=== PATIENT | female | born 1985 | race Caucasian/White ===

== ENCOUNTER 2020-12-02 12:39 | Outpatient (RCR) | payer OTHER, SELFPAY ==
[2020-12-02 14:07] LABS: Hematocrit 30.1 % (37.0-47.0); Hemoglobin 9.8 g/dL (12.0-15.0); Mean Corpuscular HGB Conc 32.6 g/dl (32-36); Mean Corpuscular Hemoglobin 28.4 pg (26-34); Mean Corpuscular Volume 87.2 fl (80-100); Mean Platelet Volume 8.9 fl (7.4-10.4); Platelet Count Result 260 k/mm3 (150-375); Red Blood Count 3.45 M/mm3 (4.2-5.4); Red Cell Distribution Width 12.8 % (11.5-14.5); White Blood Count 10.4 K/mm3 (4.5-10.0)
[2020-12-02 14:18] LABS: Glucose 1 Hour PP 50gm Dose 150 mg/dL
[2020-12-02 15:00] LABS: HIV 1/2 Ab P24 Ag Result Negative (Negative)
[2020-12-04] MEDS: RHO(D) IMMUNE GLOBULIN 300 MCG/2 ML SYRINGE IM (13:17)
== END 2021-03-02 23:59 | disposition home or self-care (01) ==
LOC: ANHLAB 12:39
PROVIDERS: Visit Provider Obstetrics & Gynecology
DX: Z11.4 Encounter for screening for human immunodeficiency virus [HIV] (principal); Z29.13 Encounter for prophylactic Rho(D) immune globulin; O36.0120 Maternal care for anti-D [Rh] antibodies, second trimester, not applicable or unspecified; Z3A.00 Weeks of gestation of pregnancy not specified
CPT/HCPCS: 36415; 82947; 85027; 85461; 86703; 90384; 96372; G0432; J2790

== ENCOUNTER 2020-12-18 07:03 | Outpatient (CLI) | payer OTHER, SELFPAY ==
[2020-12-18 08:32] LABS: Glucose Fasting Gestational 91 mg/dL (>/=95)
[2020-12-18 10:28] LABS: Glucose 1 Hour Gest 134 mg/dL (>/=180)
[2020-12-18 11:28] LABS: Glucose 2 Hour Gest 147 mg/dL (>/= 155)
[2020-12-18 12:29] LABS: Glucose 3 Hour Gest 119 mg/dL (>/=140)
== END 2020-12-18 07:04 | disposition home or self-care (01) ==
LOC: ANHLAB 07:05
PROVIDERS: PCP Obstetrics & Gynecology; Visit Provider Obstetrics & Gynecology
DX: R73.09 Other abnormal glucose (principal)
CPT/HCPCS: 36415; 82951; 82952

== ENCOUNTER 2021-02-09 14:59 | Outpatient (CLI) | payer OTHER, SELFPAY ==
--- NOTE | ~2021-02-09 | US_ITS ---
EXAMINATION: US OB follow up DATE: 02/09/2021 15:33 INDICATION: growth restriction during third trimester TECHNIQUE: Real-time ultrasound of the pelvis was performed. The interpreting radiologist was not pre sent for the study. COMPARISON: None FINDINGS: There is a single living fetus in vertex presentation. The placenta is right anterior. heart r ate is 157 beats per minute (bpm). The amniotic fluid index is 5.5 cm, which is normal (2.5, 5th%-95 %: 6.6, 7.5-24.4 cm at 37 weeks estimated gestational age). The following biometric data were obtained: BPD: 9.1 cm -> 36 weeks 6 days Head circumference: 31.9 cm -> 36 weeks 0 days Abdominal circumference: 32.0 cm -> 35 weeks 6 days Femur length: 7.0 cm -> 35 weeks 5 days These measurements are concordant. Head circumference to abdominal circumference ratio: 1.00 (normal range 0.92-1.08). Estimated weight: 2805 g (+/-) 421 g or 6 lbs. 3 oz. (+/-) 15 oz. IMPRESSION: 1. Single living fetus in vertex presentation with heart rate of 157 bpm. 2. Gestational age by ultrasound of 36 weeks 1 day(s) +/- 2 week(s) 4 day(s) with ultrasound estimate d date of delivery (JAKE) of 03/08/2021. Estimated weight is 21st percentile by Hadlock criteria when 02/27/2021 is used as the JAKE. Please correlate with clinical information or earlier ultrasounds for most accurate JAKE. 3. Oligohydramnios with amniotic fluid index of 5.5 cm which is greater than 3 standard deviations be low the mean. Correlate for leaking fluids. Reviewed, dictated and finalized at location A. IMPRESSION: 1. Single living fetus in vertex presentation with heart rate of 157 bpm. 2. Gestational age by ultrasound of 36 weeks 1 day(s) +/- 2 week(s) 4 day(s) wi th ultrasound estimated date of delivery (JAKE) of 03/08/2021. Estimated we ight is 21st percentile by Hadlock criteria when 02/27/2021 is used as the JAKE. Please correlate with clinical information or earlier ultrasounds for most accu rate JAKE. 3. Oligohydramnios with amniotic fluid index of 5.5 cm which is greater than 3 standard deviations below the mean. Correlate for leaking fluids.
== END 2021-02-09 15:00 | disposition home or self-care (01) ==
LOC: ANHIMG 15:00
PROVIDERS: PCP Obstetrics & Gynecology; Visit Provider Obstetrics & Gynecology
DX: O35.8XX9 Maternal care for other (suspected) fetal abnormality and damage, other fetus (principal); Z3A.36 36 weeks gestation of pregnancy; O41.03X0 Oligohydramnios, third trimester, not applicable or unspecified
CPT/HCPCS: 76816

== ENCOUNTER 2021-02-10 15:41 | Inpatient (IN) | payer OTHER, SELFPAY ==
[2021-02-10] VITALS (14 sets, daily range): BP systolic 96–129; BP diastolic 55–82; PULSE 78–97; RESP 16–18; TEMP 36.7–37.1; BMI 29.9
--- OUTSIDE RECORDS SUMMARY | 2021-02-10 15:48 | XMS_ITS | Encounter Summary ---
:1985 Author Reason for Visit return OB visit Assessment and Plan 1. Advanced maternal age Discussion Note: None recorded.Patient educational handouts: No information available. Plan of Care Reminders Provider Appointments None ? ? recorded. Lab None ? ? recorded. Referral None ? ? recorded. Procedures None ? ? recorded. Surgeries None ? ? recorded. Imaging None ? ? recorded. Medications No Medications Reported Notes: , iron Medications Administered None recorded. Vitals Height Weight Blood Pressure 5 ft 5 in 190 lbs 142/92 mm[Hg] Results Lab Results None recorded. Allergies Code Code System Name Reaction Severity Onset Septra Hives ? ? Problems Name Status Onset Date Source ? Active 07/22/2020 History Hemorrhoids Active ? History Procedures Date Name Performed by ? 07/24/2010 SIX SIGMA BLACK TRAINER Surgery Information not fransisca burgess Notes: Hysterscopy 02/09/2021 US, Obstetric, 3Rd Trimester, Single And [facility] (Imaging) Gestation
--- OUTSIDE RECORDS SUMMARY | 2021-02-10 15:48 | XMS_ITS | Encounter Summary ---
:1985 Author Reason for Visit return OB visit Assessment and Plan 1. Routine care Discussion Note: None recorded.Patient educational handouts: No [...] Weight Blood Pressure 5 ft 5 in 187 lbs 116/71 mm[Hg] Results Lab Results None recorded. Allergies Code Code System Name Reaction Severity Onset Septra Hives ? ? Problems Name Status Onset Date Source ? Active 07/22/2020 History Hemorrhoids Active ? History Procedures Date Name Performed by ? 07/24/2010 HELMINTHOLOGY TEACHER Surgery Information not fransisca burgess Notes: Hysterscopy Vaccine List Vaccine Type influenza, high dose seasonal
--- OUTSIDE RECORDS SUMMARY | 2021-02-10 15:48 | XMS_ITS | Encounter Summary ---
:1985 Author Reason for Visit return OB visit Assessment and Plan 1. Routine care ? streptococcus group B, cul ture, unspecified specimen Discussion Note: None recorded.Patient educational handouts: No information available. Plan of Care Reminders Provider Appointments None recorded. ? ? Lab Streptococcus Gat [facility] Group B, Culture, 02/02/2021 Hospital (Lab) Unspecified Specimen Referral None recorded. ? ? Procedures None recorded. ? ? Surgeries None recorded. ? ? Imaging None recorded. ? ? Medications No Medications Reported Notes: , iron Medications Administered None recorded. Vitals Weight Blood Pressure 188 lbs 118/70 mm[Hg] Results Lab Results Date Name Specimen Result Interpretation Description Value Range Status Address ? 02/02/2021 Streptococcus ABNORMAL Strep Gp B positive nega tive Final [facility]: Group B, [facility] [id number], [address], Specimen Neon ? ? ? Organism comment ? Final [facility] p: Identification
--- OUTSIDE RECORDS SUMMARY | 2021-02-10 15:48 | XMS_ITS | Encounter Summary ---
[...] Administered None recorded. Vitals Weight Blood Pressure 186 lbs 122/82 mm[Hg] Results Lab Results None recorded. Allergies Code Code System Name Reaction Severity Onset Septra Hives ? ? Problems Name Status Onset Date Source ? Active 07/22/2020 History Hemorrhoids Active ? History Procedures Date Name Performed by ? 07/24/2010 MANUAL LATHE OPERATOR Surgery Information not fransisca burgess Notes: Hysterscopy Vaccine List Vaccine Type influenza, high dose seasonal
--- OUTSIDE RECORDS SUMMARY | 2021-02-10 15:48 | XMS_ITS ---
:1985 Author Care Team Providers Name Role Phone [facility] Primary Care Provider Unavailable Allergies Code Code System Name Reaction Severity Status Onset Septra Hives ? Active ? Medications Name Status Start Date Stop Date ? ? amoxicillin 875 mg-potassium Completed ? 09/2018 clavulanate 125 mg tablet Anusol-HC 25 mg rectal suppository Completed ? 12/12/2013 Insert 1 suppository 3 times a day by rectal route for 14 days. Boostrix Tdap 2.5 Lf unit-8 Unknown ? Not available mcg-5 Lf/0.5 mL intramuscular suspension cephalexin 500 mg capsule Completed 08/06/20192019 Engerix-B (PF) 20 mcg/mL Completed ? 020 intramuscular syringe Estarylla 0.25 mg-35 mcg tablet Completed ? 05/28/2019 TK 1 T PO QD fluconazole 150 mg tablet Completed ? 2018 fluticasone propionate 50 Completed ? 2018 mcg/actuation nasal spray,suspension Fluvirin 8700-3300(PF) 45 mcg Unknown ? No t available (15 mcg x3)/0.5 mL intramuscular syringe Fluvirin 45 mcg (15 mcg x 3)/0.5 mL intramus cular suspension Completed ? 05/28/2019 ADM 0.5ML IM UTD hydrocodone 5 mg-acetaminophen Completed ? 0 01/11/2020 325 mg tablet Lo Loestrin Fe 1 mg-10 mcg (24)/10 mcg (2) tablet Completed ? 06/23/2017 Take 1 tablet every day by oral route. metronidazole 0.75 % vaginal gel Active ? Not available I 1 APL VAGINALLY QD FOR 5 DAYS
--- OUTSIDE RECORDS SUMMARY | 2021-02-10 15:49 | XMS_ITS | Encounter Summary ---
[...] Administered None recorded. Vitals Weight Blood Pressure 184.2 lbs 110/70 mm[Hg] Results Lab Results None recorded. Allergies Code Code System Name Reaction Severity Onset Septra Hives ? ? Problems Name Status Onset Date Source ? Active 07/22/2020 History Hemorrhoids Active ? History Procedures Date Name Performed by ? 07/24/2010 BUTTERMAKER Surgery Information not fransisca burgess Notes: Hysterscopy Vaccine List Vaccine Type influenza, high dose seasonal
--- OUTSIDE RECORDS SUMMARY | 2021-02-10 15:49 | XMS_ITS | Encounter Summary ---
:1985 Author Reason for Visit return OB visit Assessment and Plan 1. Routine care 2. Blood glucose abnormal ? [facility] Discussion Note: None recorded.Patient educational handouts: No information available. Plan of Care Reminders Provider Appointments None ? ? recorded. Lab Glucose [facility] Tolerance Test, 12/08/2020 Hospital (Lab) Gestational, 3-Hour Referral None ? ? recorded. Procedures None ? ? recorded. Surgeries None ? ? recorded. Imaging None ? ? recorded. Medications No Medications Reported Notes: , iron Medications Administered None recorded. Vitals Weight Blood Pressure 181 lbs 120/78 mm[Hg] Results Lab Results Date Name Specimen Result Interpretation Description Value Range Status Address ? 12/18/2020 Glucose ? No observation ? ? ? [facility] Tolerance Test, recorded. Hospital Gestational, (Lab ): [address], [place] Allergies
--- OUTSIDE RECORDS SUMMARY | 2021-02-10 15:49 | XMS_ITS | Encounter Summary ---
:1985 Author Reason for Visit return OB visit Assessment and Plan 1. Routine care ? glucose tolerance test, ge stational, 1-hour ? CBC ? HIV (1+2) Ab screen, serum ? Rh immune globulin screeni ng Discussion Note: None recorded.Patient educational handouts: No information available. Plan of Care Reminders Provider Appointments None ? ? recorded. Lab Glucose [place] [facility] Tolerance Test, 11/11/2020 Hospital (Lab) Gestational, 1-Hour ? Cbc [place] [facility] 11/11/2020 [facility] (Lab) ? HIV (1+2) Ab [address] [facility] Screen, Serum 11/11/2020 [facility] (Lab) ? Rh Immune [place] [facility] Globulin Screening 11/11/2020 [facility] (Lab ) Referral None ? ? recorded. Procedures None ? ? recorded. Surgeries None ? ? recorded. Imaging None ? ? recorded. Medications No Medications Reported Notes: , iron Medications Administered None recorded. Vitals Weight Blood Pressure 183 lbs 124/80
--- OUTSIDE RECORDS SUMMARY | 2021-02-10 15:49 | XMS_ITS ---
:1985 Author Care Team Providers Name Role Phone YIN HACKETT MD Primary Care Provider [phone] Allergies Code Code System Name Reaction Severity [...] Completed ? 2018 mcg/actuation nasal spray,suspension Fluvirin 6586-6022(PF) 45 mcg Unknown ? No t available [...] oral route. metronidazole 0.75 % vaginal gel Completed ? 01/11/2020
[2021-02-10 16:47] LABS: Basophils Percent Auto 0.2 % (0.2-1.2); Eosinophils Absolute Auto 0.2 K/mm3 (0-0.3); Eosinophils Percent Auto 1.6 % (0-4.4); Hematocrit 31.6 % (37.0-47.0); Hemoglobin 10.6 g/dL (12.0-15.0); Immature Granulocyte Absolute 0.06 K/mm3 (0.00-0.031); Immature Granulocyte Percent A 0.6 % (0-0.5); Lymphocytes Absolute Auto 1.39 K/mm3 (0.9-3.2); Lymphocytes Percent Auto 13.6 % (18.3-44.2); Mean Corpuscular HGB Conc 33.5 g/dl (32-36); Mean Corpuscular Hemoglobin 28.8 pg (26-34); Mean Corpuscular Volume 85.9 fl (80-100); Mean Platelet Volume 9.4 fl (7.4-10.4); Monocytes Absolute Auto 0.7 K/mm3 (0.1-0.6); Monocytes Percent Auto 6.5 % (2.6-8.5); Neutrophils Absolute Auto 7.9 K/mm3 (1.3-6.7); Neutrophils Percent Auto 77.5 % (45.5-73.1); Platelet Count Result 276 k/mm3 (150-375); Red Blood Count 3.68 M/mm3 (4.2-5.4); Red Cell Distribution Width 13.1 % (11.5-14.5); White Blood Count 10.2 K/mm3 (4.5-10.0)
[2021-02-10] MEDS: LACTATED RINGERS 1,000 ML 125 ML IV CONT (17:05)
[2021-02-10] MEDS: AMPICILLIN 2 GM/NS 100 ML 2 GM/100 ML BAG IVPB (17:06)
[2021-02-10] MEDS: DINOPROSTONE 10 MG VAG INSERT VAGINAL (17:15)
--- NOTE | 2021-02-10 17:27 | LDADM ---
This patient, Jazmín Pineda, was admitted to Labor/Delivery/Recovery 107 on 02/10/21 at 15:41. Plans for labor, pain management and were discussed with patient. Patient/family oriented to hospital policies and general routines including ID bracelet, bed and alarms, visiting hours, pain management, procedures, bathroom and other care routines, personal items, smoking policy, room service/diet and guest tray routines, security routines, and visiting hours. Patient/Family are encouraged to report perceived risks to care and to ask questions if they do not understand what they are told or what they should do. See OBIX for further documentation.
--- NOTE | 2021-02-10 17:50 | WPDANESEPP ---
Anes - Eval Pre Procedure Procedure: Labor epidural Date/Time: 02/10/21 17:50 Surgeon: Laz Preop Diagnosis: Abd pain with contractions Pre Op Diagnosis: iol Patient Data Age: 35 Gender: F Height: 1.68 m Weight: 84 kg Last Vital Signs Pulse 90 02/10/21 17:46 BP 115/75 02/10/21 17:46 Allergies Allergy/AdvReac Type Severity Reaction Status Date / Time sulfamethoxazole AdvReac Difficulty Verified 02/10/21 17:42 [From ] Breathing trimethoprim [From ] AdvReac Difficulty Verified 02/10/21 17:42 Breathing Home Medications Medication Instructions Recorded Confirmed Type PNV no.[id number] acid tablet PO 01/29/21 History [Complete ] albuterol mcg INHALATION PRN 01/29/21 History ferrous sulfate [Iron (ferrous 325 mg PO BID 01/29/21 02/10/21 History sulfate)] Laboratory Tests 02/10/21 02/10/21 02/10/21 16:17 16:17 16:17 WBC 10.2 K/mm3 H K/mm3 (4.5-10.0) RBC 3.68 M/mm3 L M/mm3 (4.2-5.4) Hgb 10.6 g/dL L g/dL (12.0-15.0) Hct 31.6 % L % (37.0-47.0) MCV 85.9 fl fl (80-100) MCH 28.8 pg pg (26-34) MCHC 33.5 g/dl g/dl (32-36) RDW 13.1 % % (11.5-14.5) Plt Count 276 k/mm3 k/mm3 (150-375) MPV 9.4 fl fl (7.4-10.4) Immature Gran % (Auto) 0.6 % H % (0-0.5) Neut % (Auto) 77.5 % H % (45.5-73.1) Lymph % (Auto) 13.6 % L % (18.3-44.2) [place] % (Auto) 6.5 % % (2.6-8.5) Eos % (Auto) 1.6 % % (0-4.4) Baso % (Auto) 0.2 % % (0.2-1.2) Lymph # (Auto) 1.39 K/mm3 K/mm3 (0.9-3.2) [place] # (Auto) 0.7 K/mm3 H K/mm3 (0.1-0.6) Eos # (Auto) 0.2 K/mm3 K/mm3 (0-0.3) Baso # (Auto) 0.0 K/mm3 K/mm3 (0.0-0.1) Abs Immat Gran (auto) 0.06 K/mm3 H K/mm3 (0.00-0.031) Absolute Neuts (auto) 7.9 K/mm3 H K/mm3 (1.3-6.7) Absolute Nucleated RBC 0.0 K/mm3 K/mm3 (0.0-0.012) Nucleated RBC % 0.0 % % (0.0-0.2) RPR Pending Blood Type A Negative Antibody Screen Negative Patient hx anesthesia problems: none Family hx anesthesia problems: none PMFSH Past Medical History Medical History Asthma History of smoking Overweight (BMI 25.0-29.9) and not yet delivered Family History Family History Father Heart disease Hypertension Diabetes mellitus Mother Heart disease Hypertension Sibling Pre-diabetes Social History Social History Years smoked: 1 Smoking status: Former smoker Tobacco type: cigarettes Second hand tobacco smoke exposure: No Substance use: never Gender identity (if verbalized by the patient): Female Spiritual care concerns: No Exam Day of Procedure 02/10/21 17:50 Patient weight: overweight Airway: Mallampati scale class II Neurological: alert and oriented
[2021-02-10] MEDS: AMPICILLIN 1 GM/NS 50 ML 1 GM/50 ML BAG IVPB (21:02)
[2021-02-11] VITALS (94 sets, daily range): BP systolic 100–148; BP diastolic 47–104; PULSE 71–211; RESP 16–18; TEMP 36.2–37; O2SAT 98–100
[2021-02-11] MEDS: AMPICILLIN 1 GM/NS 50 ML 1 GM/50 ML BAG IVPB ×3 (01:43→09:32)
[2021-02-11] MEDS: OXYTOCIN 30 UNITS/NS 500 ML 30 UNITS/500 ML BAG IV CONT (05:29)
[2021-02-11] MEDS: LACTATED RINGERS 1,000 ML 125 ML IV CONT ×2 (05:30→10:52)
[2021-02-11] MEDS: ACETAMINOPHEN 500 MG TABLET 1000 MG PO (09:04)
--- NOTE | 2021-02-11 09:31 | PM.IMHP ---
H&P: HPI History of Present Illness Date/Time: 02/11/21 09:31 35yo at 37w5d here for induction of labor due to gestational hypertension and reduced amniotic fluid on US (BJ 5.5cm, >3 SD below mean). Doing well, no questions. Has a headache relieved by tylenol. Denies blurry vision, scotomas. Chief Complaint: Induction of labor Review of Systems Constitutional: Constitutional: Reports no additional constitutional complaints Eyes: Eyes: Reports no additional eye complaints ENT: Reports system reviewed and no additional complaints, except as documented Cardiovascular: Cardiovascular: Reports no additional cardiovascular complaints Respiratory: Respiratory: Reports no additional respiratory complaints Gastrointestinal: Gastrointestinal: Reports no additional gastrointestinal complaints Genitourinary: Genitourinary: Reports no additional female genitourinary complaints Musculoskeletal: Musculoskeletal: Reports no additional musculoskeletal complaints Integumentary/Breasts: Skin/Breast: Reports system reviewed and no additional complaints, except as docu Neurologic: Reports headache(s) Psychiatric: Psychiatric: Reports no additional psychiatric complaints Endocrine: Endocrine: Reports no additional endocrine complaints Hematologic/Lymphatic: Hematologic/Lymphatic: Reports no additional hematologic/lymphatic complaints Allergic/Immunologic: Allergic/Immunologic: Reports no additional allergic/immunologic complaints PMFSH Past Medical History Medical History Asthma History of smoking Overweight (BMI 25.0-29.9) and not yet delivered Family History Family History Father Heart disease Hypertension Diabetes mellitus Mother Heart disease Hypertension Sibling Pre-diabetes Social History Social History Years smoked: 1 Smoking status: Former smoker Tobacco type: cigarettes Second hand tobacco smoke exposure: No Substance use: never Gender identity (if verbalized by the patient): Female Spiritual care concerns: No Meds Home Medications and Allergies Home Medications Medication Instructions Recorded Confirmed Type PNV no.[id number]-dtaxx acid 1 tablet PO QAM 01/29/21 02/10/21 History [Complete ] albuterol 90 mcg INHALATION PRN PRN 01/29/21 02/10/21 History ferrous sulfate [Iron (ferrous 325 mg PO BID 01/29/21 02/10/21 History sulfate)] Allergies Allergy/AdvReac Type Severity Reaction Status Date / Time sulfamethoxazole AdvReac Difficulty Verified 02/10/21 17:42 [From ] Breathing trimethoprim [From ] AdvReac Difficulty Verified 02/10/21 17:42 Breathing Vital Signs Vital Signs - 24 hr 02/10/21 16:45 02/10/21 17:02 02/10/21 17:30 Temperature 36.7 C Pulse Rate 97 Respiratory Rate 18 16 Blood Pressure 129/76 02/10/21 17:31 02/10/21 17:46 02/10/21 18:01 Temperature Pulse Rate 88 90 88 Respiratory Rate Blood Pressure 128/79 115/75 96/55 L 02/10/21 18:15 02/10/21 18:29 02/10/21 18:31 Temperature Pulse Rate 83 86 Respiratory Rate 16 Blood Pressure 118/77 129/82 02/10/21 18:46 02/10/21 19:01 02/10/21 19:07 Temperature 37.1 C Pulse Rate 88 81 Respiratory Rate 18 Blood Pressure 116/77 117/71 02/10/21 19:16 02/10/21 23:29 02/11/21 00:16 Temperature 36.9 C Pulse Rate 78 78 Respiratory Rate 18 Blood Pressure 100/55 L 123/67 02/11/21 03:58 02/11/21 04:09 02/11/21 05:29 Temperature 36.7 C Pulse Rate 79 93 Respiratory Rate 18 Blood Pressure 117/59 L 110/68 02/11/21 05:31 02/11/21 05:46 02/11/21 06:01 Temperature Pulse Rate 96 93 78 Respiratory Rate Blood Pressure 124/77 125/74 126/73 02/11/21 06:16 02/11/21 06:31 02/11/21 06:46 Temperature Pulse Rate 86 80 87 Respiratory Rate Bloo
--- NOTE | 2021-02-11 09:42 | WPDHPUPDATE1 ---
History and Physical Update Update Date/Time: 02/11/21 09:42 History and Physical has been reviewed, including an updated exam of the patient. There are NO changes in the patient's condition. Risks, benefits, and alternatives have been discussed and questions answered. Patient agrees to proceed with procedure.
[2021-02-11 10:00] LABS: Rapid Plasma Reagin Non-Reactive (NonReactive)
[2021-02-11] MEDS: ONDANSETRON INJ 4 MG/2 ML VIAL IV PUSH (10:52)
--- NOTE | 2021-02-11 12:42 | PM.OBPRVD ---
OB - Delivery Note Procedure Delivery date: 02/11/21 Procedure: Normal spontaneous vaginal delivery events: Induced HTN Induction method: AROM, per pitocin protocol and per cervidil protocol Delivery monitor: external FHT and external uterine Route of delivery: Laceration Description: Perineal - 1st Degree Delivery repair: vicryl Quantitative Blood Loss (ml): 100 Anesthesia type: Epidural Narrative: Once she was noted to be complete and ready to push, the labor bed was broken down and legs were placed in stirrups for support. With contractions and maternal efforts, the presented in VEE position. The head was delivered. Checked for nuchal cord, no nuchal cord noted. Gentle downward traction was applied and the anterior shoulder delivered without issues, followed by the posterior shoulder and rest of the body. was vigorous and crying, so delayed cord clamping of approximately 1 minute was performed. The cord was clamped and cut. Cord gasses collected. Placenta was delivered spontaneously. IV oxytocin administered and fundal massage applied. Exam was performed to identify any lacerations. 1st degree perineal laceration was repaired with 3-0 Vicryl. Good hemostasis noted. Patient tolerated the procedure well. All instrument and sponge counts were correct at the end of the procedure. [place] Baby Date of : 02/11/21 Time of : 12:16 Weeks of gestation at delivery: 37 Infant gender: Female Weight (pounds): 6 Weight (ounces): 2 presentation: vertex position: Right Occiput Anterior Placenta delivery description: Spontaneous cord vessel description: 3 Vessels score one minute: 9 score five minutes: 9
[2021-02-11] MEDS: WITCH HAZEL 40 PADS 1 PAD TOPICAL (14:30)
[2021-02-11] MEDS: BENZOCAINE 20% AER SPR (*SP) 56 GM CAN 1 SPRAY TOPICAL (14:30)
--- NOTE | 2021-02-11 15:27 | OBPPTRN ---
Patient transferred to post room #285 via W/C @ 1497. Support person present. Oriented to unit, room, information board, rooming in, admission packet and security measures. Patient verbalizes understanding.
[2021-02-12 04:00] VITALS: BP 107/62; PULSE 8; RESP 16; TEMP 36.4; O2SAT 96
[2021-02-12] MEDS: IBUPROFEN 600 MG TABLET PO ×2 (04:13→20:00)
[2021-02-12 05:29] LABS: Hematocrit 30.5 % (37.0-47.0); Hemoglobin 10.1 g/dL (12.0-15.0)
[2021-02-12 08:05] VITALS: BP 137/75; PULSE 73; RESP 18; TEMP 36.3; O2SAT 99
--- NOTE | 2021-02-12 09:24 | WPDANLDPN2 ---
Anes-Prog Note L&D Date/Time: 02/12/21 09:24 Comfortable throughout: labor and delivery Neuraxial method: epidural Epidural/Spinal procedure site: clean & non-tender Neuro status: Neuro function grossly intact. Cardiovascular status: normal Respiratory status: normal Airway patency: baseline Mental status: baseline Post-Op hydration status: normal Vital Signs: Last Vital Signs Temp 36.4 C L 02/12/21 04:00 Pulse 8 L 02/12/21 04:00 Resp 16 02/12/21 04:00 BP 107/62 02/12/21 04:00 Pulse Ox 96 02/12/21 04:00 Pain score (VAS): 0 I/O: Intake & Output 02/11/21 02/12/21 02/12/21 23:59 07:59 15:59 Intake Total 200 200 Output Total 1200 400 Balance -1000 -200 Post-procedural complaints: none Patient feedback: Patient satisfied with anesthetic care.
--- NOTE | 2021-02-12 10:30 | PC.NURSE ---
Consult with pt., mother reports has been sleepy and spitty, ICP has suggested supplementation after due to 5% weight loss in 24 hours. Mother states she plans on pumping and bottle feeding within the next week due to her school schedule. Suggested mother attempt infant to breast first each feeding, supplement and then pump to assist with milk supply. Mother will initiate feeding plan next feeding.
[2021-02-12] MEDS: TETANUS,DIPHTHERIA,AC PERTUSSIS ADULT (0.5 ML) BOOSTRIX IM (13:03)
[2021-02-12 13:45] VITALS: BP 113/74; PULSE 82; RESP 18; TEMP 36.4; O2SAT 98
--- NOTE | 2021-02-12 14:15 | P.PNOB_ITS ---
OB - PN: Subj Subjective Date/time seen: 02/12/21 14:15 35yo s/p on 02/11. Doing well, some cramping. Lochia minimal. Pain is controlled. Breast feeding. Ambulating without issues. OB - PN: Obj Data Labs CBC & Chem 7: 02/12/21 04:08 Labs: Laboratory Results - last 24 hr 02/12/21 04:08 Hgb 10.1 L Hct 30.5 L OB - PN A/P Assessment and Plan (1) (normal spontaneous vaginal delivery): Code(s): O80 - Encounter for full-term uncomplicated delivery Status: Acute Assessment and Plan: Routine postop care Pain management Ambulate DC home tomorrow Time Spent With Patient Time: Total time spent is greater than 50% in coordination of care (as documente d) at patient's floor/unit and/or counseling patient: Exam Const: General: cooperative, healthy appearing, comfortable and no acute distress Orientation/consciousness: oriented to person, oriented to place and oriented to time Resp: Effort & Inspection: normal respiratory effort, able to speak in complete sentences, no audible wheezes and no cough Cardio: Rate: regular rate GI: Inspection: normal to inspection Other: Fundus firm below umbilicus Skin: General skin exam: normal color Neuro: General: oriented to person, oriented to place and oriented to time Psych: Appearance: grossly normal Mental Status: mental status grossly normal Speech and movement: Normal speech and movement present Affect: normal affect Attitude: cooperative Thought process: Normal thought process present Insight: Good insight present (Psych) Judgement: Good judgement present (Psych)
--- NOTE | 2021-02-12 14:30 | PC.NURSE ---
Breast pump provided due to mother's wishes and infant weight loss. . Instructions given on breast pump care and usage, pumping schedule, nipple care, and collection and storage of breast milk. Encouraged [id number], breast massage and manual expression to stimulate supply. Assessed patient for correct flange size, placement and draw. Patient verbalizes and demonstrates understanding of instructions.
[2021-02-12 17:00] VITALS: BP 132/72; PULSE 82; RESP 16; TEMP 36.7; O2SAT 98
[2021-02-12 19:50] VITALS: BP 131/80; PULSE 86; RESP 16; TEMP 36.6; O2SAT 99
[2021-02-13] VITALS: BP 131/74; PULSE 82; RESP 16; TEMP 36.3; O2SAT 100
[2021-02-13 04:15] VITALS: BP 122/69; PULSE 78; RESP 16; TEMP 36.7; O2SAT 99
[2021-02-13 07:45] VITALS: BP 140/77; PULSE 85; RESP 16; TEMP 36.6; O2SAT 100
[2021-02-13] MEDS: IBUPROFEN 600 MG TABLET PO (08:11)
[2021-02-13] MEDS: MULTIVIT/MIN/PREN/FOL AC/IRON TABLET 1 TAB PO (08:11)
--- NOTE | 2021-02-13 09:15 | P.DS_ITS ---
DS: Admitting Diagnosis Admitting Diagnosis Gestational hypertension DS: Discharge Diagnosis Discharge Diagnosis (1) (normal spontaneous vaginal delivery): Code(s): O80 - Encounter for full-term uncomplicated delivery Status: Acute (2) Gestational hypertension: Qualifiers: Trimester: third trimester Qualified Code(s): O13.3 - Gestational [-induced] hypertension without significant proteinuria, third trimester Code(s): O13.9 - Gestational [-induced] hypertension without significant proteinuria, unspecified trimester Status: Acute OB - DS: Summary OB Procedures : PIH Mgmt OB Procedures Intrapartum: Spontaneous Vag Delivery OB Procedures: : None Time Spent with Patient Time attestation: Total time spent providing and/or coordinating discharge services: Exam Const: General: cooperative, healthy appearing, comfortable and no acute distress Orientation/consciousness: oriented to person, oriented to place and oriented to time Resp: Effort & Inspection: normal respiratory effort, able to speak in co mplete sentences, no audible wheezes and no cough Cardio: Rate: regular rate GI: Inspection: normal to inspection Skin: General skin exam: normal color Neuro: General: oriented to person, oriented to place and oriented to time Psych: Appearance: grossly normal Mental Status: mental status grossly normal Speech and movement: Normal speech and movement present Affect: normal affect Attitude: cooperative Thought process: Normal thought process present Insight: Good insight present (Psych) Judgement: Good judgement present (Psych) DS: Data Data Completed and Pending Completed studies during hospitalization: Pending at discharge 02/11/21 12:31 Surgical [PTH] Routine Discharge Plan Discharge Attending physician on discharge: Yung Nesbitt Discharging Clinician: Yung Nesbitt Patient Disposition: Home, Self-Care Activity: may shower, no straining, as tolerated and pelvic rest Diet: regular Patient Instructions: Antibiotic Form Stand Alone Forms: General Discharge Information Follow-up/Referrals: Yung Nesbitt DO [Primary Care Provider] - Discharge Medications: New docusate sodium 100 mg Capsule 100 mg PO BID PRN (Reason: Constipation) Qty: 60 RF: 0 ibuprofen 600 mg Tablet 600 mg PO Q6H PRN (Reason: Cramping) Qty: 60 RF: 0 polysaccharide iron complex 150 mg iron Capsule 150 mg PO BIDWM Qty: 60 RF: 0 Continued ferrous sulfate [Iron (ferrous sulfate)] 325 mg (65 mg iron) Tablet 325 mg PO BID RF: 0 albuterol 90 mcg/actuation Aerosol 90 mcg INHALATION PRN PRN (Reason: difficulty breathing) RF: 0 Complete 30-975 mg-mcg Tablet 1 tablet PO QAM RF: 0 Date of admission: 02/10/21 15:41 Primary Care Provider: Yung Nesbitt Admitting Provider: Yung Nesbitt Attending physician on admission: Yung Nesbitt Condition: Stable
--- NOTE | 2021-02-13 11:19 | PC.NURSE ---
Patient viewed the discharge video Mother & Baby Care, The First Two Weeks . Patient was given the opportunity and encouraged to ask questions. Patient verbalized understanding of information shared and has been given the mother/baby guide for home reference.
--- NOTE | 2021-02-13 11:54 | PC.NURSE ---
Consulted with patient. Mom denies any questions or concerns. States she has been using the breast pump and feels comfortable continuing with that plan. States she saw the nurse yesterday and was given information. Encouraged mom to call number with any questions or concerns with or pumping.
[2021-02-16 11:15] VITALS: BP 127/73; PULSE 80; RESP 20; TEMP 37.1; O2SAT 100
== END 2021-02-13 12:25 | disposition home or self-care (01) | DRG 560 ==
LOC: ANHLDR 15:46 → ANHOB2 02-11 15:14
PROVIDERS: Admitting Provider Obstetrics & Gynecology; PCP Obstetrics & Gynecology; Visit Provider Obstetrics & Gynecology
DX: O99.824 Streptococcus B carrier state complicating childbirth (principal); O13.4 Gestational [pregnancy-induced] hypertension without significant proteinuria, complicating childbirth; O41.03X0 Oligohydramnios, third trimester, not applicable or unspecified; O70.0 First degree perineal laceration during delivery; Z3A.37 37 weeks gestation of pregnancy; Z37.0 Single live birth
CPT/HCPCS: 36415; 85014; 85018; 85025; 86592; 86850; 86900; 86901; 88307; 90715; A9270; J0290; J2405; J2590; J2795; J7120

== ENCOUNTER 2021-06-01 09:00 | Outpatient (CLI) | payer OTHER, SELFPAY ==
[2021-06-01 09:46] LABS: Beta HCG Quantitative < 2.39 mIU/ML
== END 2021-06-01 09:01 | disposition home or self-care (01) ==
PROVIDERS: Visit Provider Obstetrics & Gynecology
DX: N92.6 Irregular menstruation, unspecified (principal)
CPT/HCPCS: 36415; 84702